=== PATIENT | male | born 1940 | race Two or more races ===

== ENCOUNTER 2021-02-22 13:46 | Emergency (ER) | payer OTHER ==
[~2021-02-22] VITALS: Ht 172.7 cm; Wt 63.5 kg
[2021-02-22] MEDS ORDERED: LODOSYN25 MG (14:10)
[2021-02-22] MEDS ORDERED: FINASTERIDE5 MG PO (14:10)
== END 2021-02-22 19:36 | disposition home or self-care (01) ==
LOC: ER 13:46 → SEC-K 21:41
DX: R55 Syncope and collapse (principal); R42 Dizziness and giddiness; R11.2 Nausea with vomiting, unspecified; Z03.818 Encounter for observation for suspected exposure to other biological agents ruled out